=== PATIENT | female | born 1950 | race Caucasian/White ===

== ENCOUNTER 2017-08-29 13:26 | Inpatient (IN) | payer MEDICARE, BC ==
[~2017-08-29] VITALS: Ht 160 cm; Wt 90.9 kg
[~2017-08-29 13:26] MED LIST: METF500T4 PO; PROP20TA7 PO; WARF3TAB6 PO
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
[2017-08-29] MEDS ORDERED: IOHEXOL-350 100 ML VIAL IV ONE (13:55)
[2017-08-29] MEDS ORDERED: IV NS 0.9% 500 ML IV ONE (13:56)
[2017-08-29] MEDS ORDERED: IV NS 0.9% 1,000 ML BAG IV ONE (14:00)
[2017-08-29 14:03] LABS: BASOPHILS % (AUTO) 0.6 % (0.0-2.0); EOSINOPHILS # (AUTO) 0.1 /CMM (0.0-0.7); EOSINOPHILS % (AUTO) 1.3 % (0.0-6.0); HEMATOCRIT 37 % (33-45); HEMOGLOBIN 11.8 g/dL (11.5-14.8); LYMPHOCYTES # (AUTO) 1.5 /CMM (0.8-4.8); LYMPHOCYTES % (AUTO) 33.9 % (20.0-44.0); MEAN CORPUSCULAR HEMOGLOBIN 23 PG (26.0-33.0); MEAN CORPUSCULAR HGB CONC 32 g/dl (31.0-36.0); MEAN CORPUSCULAR VOLUME 71 fL (82-100); MONOCYTES # (AUTO) 0.4 /CMM (0.1-1.30); MONOCYTES % (AUTO) 8.5 % (2.0-12.0); NEUTROPHILS # (AUTO) 2.3 /CMM (1.8-8.9); NEUTROPHILS % (AUTO) 55.7 % (43.0-81.0); PLATELET COUNT (AUTO) 190 /CMM (150-450); RED BLOOD CELL COUNT(AUTO) 5.21 MIL/uL (4.0-5.2); WHITE BLOOD COUNT (AUTO) 4.3 K/uL (4.3-11.0)
[2017-08-29 14:12] LABS: CALCIUM, SERUM 9.1 mg/dL (8.5-10.1); CARBON DIOXIDE 28 mmol/L (21-32); CHLORIDE 106 mmol/L (98-107); CREATININE 0.7 mg/dL (0.6-1.3); GLUCOSE 151 mg/dL (74-106); POTASSIUM 3.6 mmol/L (3.5-5.1); SODIUM SERUM 140 mmol/L (136-145); UREA NITROGEN, BLOOD 11 mg/dL (7-18)
--- NOTE | 2017-08-29 14:12 | NUR ---
DR. KRAUSE AT BS FOR EVAL.
--- NOTE | 2017-08-29 14:14 | NUR ---
CALL FROM TELE STROKE, DR SOLANO SPOKE WITH DR HIGGINS
[2017-08-29 14:17] LABS: INR 1.25 (0.85-1.15)
[2017-08-29 14:18] LABS: ALANINE AMINOTRANSFERASE 24 U/L (12-78); ALBUMIN 3.8 g/dL (3.4-5.0); ALKALINE PHOSPHATASE 75 U/L (46-116); ASPARTATE AMINOTRANSFERASE 19 U/L (15-37); BILIRUBIN,DIRECT 0.1 mg/dL (0.0-0.2); BILIRUBIN,TOTAL 0.5 mg/dL (0.2-1.0); TOTAL PROTEIN, SERUM 7.9 g/dL (6.4-8.2)
[2017-08-29 14:26] LABS: TROPONIN I < 0.017 ng/mL (0.00-0.056)
[2017-08-29 14:44] LABS: CHOLESTEROL 154 mg/dL (<200); HDL CHOLESTEROL 43 mg/dL (40-60); LDL 96 mg/dL (0-99); TRIGLYCERIDES 106 mg/dL (30-150)
[2017-08-29] MEDS ORDERED: ENAL5TAB PO (14:57)
[2017-08-29] MEDS ORDERED: RIVA10TA PO (14:57)
[2017-08-29] MEDS ORDERED: METO-357 PO (14:57)
[2017-08-29] MEDS ORDERED: ASPIRIN 81 MG TAB.CHEW PO ONE (15:00)
[2017-08-29] MEDS ORDERED: ASPIRIN 81 MG TAB.CHEW ONE (15:25)
--- NOTE | 2017-08-29 15:44 | NUR ---
PANEL CALL WAS PLACED AND TOPHER HELMS WAS PAGED
--- NOTE | 2017-08-29 16:29 | NUR ---
REPORT GIVEN TO MAGEN BELLO FOR ER[facility]
[2017-08-29] MEDS ORDERED: ONDANSETRON HCL/PF 4 MG/2 ML VIAL IVP PRN (17:30)
[2017-08-29] MEDS ORDERED: Z GUARD REMEDY 2 OZ OINT TP PRN (17:30)
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
[2017-08-29 17:54] VITALS: BP 161/70
[2017-08-29] MEDS: ACETAMINOPHEN 325 MG TABLET PO PRN (18:11)
--- NOTE | 2017-08-29 18:11 | NUR ---
RN NOTES ADMINISTERED TYLENOL 650 MG PO PRN FOR EARACHE 10/23, PER PATIENT REQUEST, CONTINUED MONITORING.
--- NOTE | 2017-08-29 19:30 | NUR ---
QUALITY ASSURANCE MONITOR BODY NOTE RECEIVED PATIENT AWAKE, ALERT AND ORIENTED IN BED. DAUGHTER AT BEDSIDE. DENIES ANY PAIN OR DISCOMFORT. PATIENT DENIES ANY FACIAL WEAKNESS AT THIS TIME. IV SITE INTACT WITH NO REDNESS NOTED. BED LOCKED AND IN LOWEST POSITION. WILL CONTINUE TO MONITOR.
[2017-08-29 20:00] VITALS: BP 155/73
[2017-08-29 22:00] VITALS: BP 155/73
[2017-08-29] MEDS: METOPROLOL SUCCINATE 50 MG TAB.SR.24H PO SCH (22:17)
[2017-08-29] MEDS: LANOLIN/MIN OIL/PETROLAT,WHT 3.5 GM TUBE LEFTEYE SCH (22:17)
[2017-08-30 00:27] VITALS: BP 132/66
[2017-08-30 04:00] VITALS: BP 140/84
--- NOTE | 2017-08-30 05:01 | NUR ---
HEADWAITRESS NOTE HEART PAUSE OF 1.8 SECONDS SEEN ON MONITOR. PATIENT STABLE, WITH NO COMPLAINT OF CHEST PAIN. NO LOC, NO AMS. PATIENT IS MIRANDA A.FIB 50. DIANNA ARNOLD NOTIFIED IMMEDIATELY. NEW ORDERS FOR BMP AND CARDIO CONSULT RECEIVED. WILL CONTINUE TO MONITOR PATIENT CLOSELY.
--- NOTE | 2017-08-30 06:57 | NUR ---
TEXTED DR. CLAROS FOR MRI APPROVAL.
--- NOTE | 2017-08-30 06:58 | NUR ---
ON HOLD FOR NOW,DR. CLAROS WILL LET US KNOW.
--- NOTE | 2017-08-30 07:03 | NUR ---
INFRASTRUCTURE ARCHITECT NOTE TELE READING 50 WITH A.WEN. PATIENT STABLE. NO ALOC OR AMS. ALL NEEDS MET AND ATTENDED TO. WILL ENDORSE TO DAY SHIFT.
[2017-08-30 07:36] LABS: CALCIUM, SERUM 8.7 mg/dL (8.5-10.1); CREATININE 0.7 mg/dL (0.6-1.3); POTASSIUM 3.7 mmol/L (3.5-5.1)
[2017-08-30 07:40] LABS: BASOPHILS % (AUTO) 0.2 % (0.0-2.0); HEMATOCRIT 35 % (33-45); HEMOGLOBIN 11.1 g/dL (11.5-14.8); LYMPHOCYTES # (AUTO) 1.6 /CMM (0.8-4.8); LYMPHOCYTES % (AUTO) 33.4 % (20.0-44.0); MEAN CORPUSCULAR HEMOGLOBIN 23 PG (26.0-33.0); MEAN CORPUSCULAR HGB CONC 32 g/dl (31.0-36.0); MEAN CORPUSCULAR VOLUME 71 fL (82-100); MONOCYTES # (AUTO) 0.4 /CMM (0.1-1.30); MONOCYTES % (AUTO) 8.1 % (2.0-12.0); NEUTROPHILS # (AUTO) 2.7 /CMM (1.8-8.9); NEUTROPHILS % (AUTO) 57.3 % (43.0-81.0); PLATELET COUNT (AUTO) 182 /CMM (150-450); RDW COEFFICIENT OF VARIATION 21.3 (11.5-15.0); RED BLOOD CELL COUNT(AUTO) 4.88 MIL/uL (4.0-5.2); WHITE BLOOD COUNT (AUTO) 4.7 K/uL (4.3-11.0)
[2017-08-30 07:51] LABS: ALBUMIN 3.5 g/dL (3.4-5.0); BILIRUBIN,TOTAL 0.7 mg/dL (0.2-1.0); CALCIUM, SERUM 8.9 mg/dL (8.5-10.1); CREATININE 0.7 mg/dL (0.6-1.3); MAGNESIUM 1.9 mg/dL (1.8-2.4); PHOSPHORUS 3.4 mg/dL (2.5-4.9); POTASSIUM 3.7 mmol/L (3.5-5.1); TOTAL PROTEIN, SERUM 7.1 g/dL (6.4-8.2)
[2017-08-30 08:00] VITALS: BP 163/65
--- NOTE | 2017-08-30 08:07 | NUR ---
RN OPENING NOTES RECEIVED PATIENT RESTING COMFORTABLY IN BED. AOX4. NO ACUTE DISTRESS NOTED. RESPIRATIONS APPEAR EVEN AND UNLABORED. DENIES ANY PAIN, CP OR SOB. FACIAL WEAKNESS NOTED TO THE LEFT SIDE OF THE FACE. PATIENT LEFT SIDE EXTREMITIES WNL. ON TELE READING AFIB MIRANDA. IV ACCESS PATENT AND INTACT. LFA 22G BED LOCKED IN THE LOWEST POSITION WITH SIDERAILS UP X2. CALL LIGHT WITHIN REACH. WILL CONTINUE TO MONITOR, ASSESS AND EDUCATE PATIENT THROUGHOUT SHIFT.
[2017-08-30 08:15] LABS: THYROID STIMULATING HORMONE 2.56 uIU/mL (0.358-3.74)
[2017-08-30] MEDS: METOPROLOL SUCCINATE 50 MG TAB.SR.24H PO SCH ×2 (09:00→21:43)
[2017-08-30] MEDS: METFORMIN 500 MG TABLET PO SCH (09:10)
[2017-08-30] MEDS: ENALAPRIL MALEATE (5 MG) 5 MG TABLET PO SCH (09:10)
[2017-08-30] MEDS: RIVAROXABAN 10 MG TABLET PO SCH (09:12)
[2017-08-30] MEDS: AMLODIPINE BESYLATE 5 MG TABLET PO SCH (09:12)
--- NOTE | 2017-08-30 09:15 | NUR ---
RN NON ADMIN NOTES PATIENT MIRANDA. HR 47. WILL HOLD METOPROLOL.
[2017-08-30 12:00] VITALS: BP 140/82
[2017-08-30] MEDS: ACETAMINOPHEN 325 MG TABLET PO PRN (13:10)
[2017-08-30 16:00] VITALS: BP 119/67
--- NOTE | 2017-08-30 19:30 | NUR ---
METAL STAMPER NOTE RECEIVED PATIENT AWAKE, ALERT AND ORIENTED IN BED. DAUGHTER AT BEDSIDE. DENIES ANY PAIN OR DISCOMFORT. IV SITE INTACT WITH NO REDNESS NOTED. BED LOCKED AND IN LOWEST POSITION. WILL CONTINUE TO MONITOR.
[2017-08-30 20:00] VITALS: BP 148/77
--- NOTE | 2017-08-30 20:30 | NUR ---
RN CLOSING NOTES PATIENT CONDITION REMAINS UNCHANGED. PATIENT IN STABLE CONDITION. NO ACUTE DISTRESS. RESPIRATIONS EVEN AND UNLABORED. AOX4. DENIES SOB, CP OR ANY PAIN AT ALL. BED LOCKED IN THE LOWEST POSITION WITH SIDE RAILS UP X2. ALL NEEDS MET. ALL MEDS GIVEN APPROPRIATE.
[2017-08-30] MEDS: LANOLIN/MIN OIL/PETROLAT,WHT 3.5 GM TUBE LEFTEYE SCH (21:43)
--- NOTE | 2017-08-30 22:44 | NUR ---
STORY ANALYST NOTES RECEIVED PT IN BED, ASLEEP AT THIS TIME, AROUSES EASILY. NO DISTRESS, NO SOB NOTED. RESPIRATION IS EVEN AND UNLABORED ON TELE MONITOR, A. FIB 56 AT THIS TIME. NO C/O PAIN OR DISCOMFORT AT THIS TIME. IV SITE ON LFA INTACT AND PATENT, FLUSHED WITH NS , NO S/S OF INFILTRATION NOTED. ALL NEEDS ATTENDED AND MET. KEPT COMFORTABLE. SAFETY PRECAUTIONS OBSERVED. CALL LIGHT WITHIN REACH. WILL CONT TO MONITOR.
--- NOTE | 2017-08-30 22:44 | NUR ---
JACKHAMMER SPLITTER OPERATOR NOTE ENDORSED TO EUGENIA HERRON
[2017-08-31] VITALS: BP_SYST 150; BP_SYST 160; BP_DIAS 70; BP_DIAS 74
[2017-08-31] MEDS: ACETAMINOPHEN 325 MG TABLET PO PRN ×2 (02:19→13:22)
[2017-08-31 04:00] VITALS: BP_SYST 150; BP_SYST 152; BP_DIAS 69; BP_DIAS 70
--- NOTE | 2017-08-31 06:51 | NUR ---
THREAT ANALYST NOTES PT IN BED, RESTING COMFORTABLY AT THIS TIME, AROUSES EASILY. NO DISTRESS, NO SOB NOTED. RESPIRATION IS EVEN AND UNLABORED ON TELE MONITOR, A. FIB 63 AT THIS TIME. NO C/O PAIN OR DISCOMFORT AT THIS TIME. IV SITE ON LFA INTACT AND PATENT, FLUSHED WITH NS , NO S/S OF INFILTRATION NOTED. ALL NEEDS ATTENDED AND MET. KEPT COMFORTABLE. SAFETY PRECAUTIONS OBSERVED. CALL LIGHT WITHIN REACH. WILL ENDORSE TO NEXT SHIFT FOR ERMA. .
[2017-08-31 07:10] VITALS: BP 155/76
--- NOTE | 2017-08-31 08:00 | NUR ---
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 PATIENT REFUSED PAIN AT THIS TIME, SCHEDULED MEDICATION ADMINISTERED, V/S STABLE, SAFETY PRECAUTION MAINTAINED ALL THE TIME.
[2017-08-31 08:13] LABS: BASOPHILS % (AUTO) 0.2 % (0.0-2.0); EOSINOPHILS # (AUTO) 0.1 /CMM (0.0-0.7); EOSINOPHILS % (AUTO) 1.1 % (0.0-6.0); HEMATOCRIT 35 % (33-45); HEMOGLOBIN 11.1 g/dL (11.5-14.8); LYMPHOCYTES # (AUTO) 1.8 /CMM (0.8-4.8); MEAN CORPUSCULAR HEMOGLOBIN 23 PG (26.0-33.0); MEAN CORPUSCULAR HGB CONC 32 g/dl (31.0-36.0); MEAN CORPUSCULAR VOLUME 71 fL (82-100); MONOCYTES # (AUTO) 0.4 /CMM (0.1-1.30); MONOCYTES % (AUTO) 8.2 % (2.0-12.0); NEUTROPHILS # (AUTO) 2.8 /CMM (1.8-8.9); NEUTROPHILS % (AUTO) 55.5 % (43.0-81.0); PLATELET COUNT (AUTO) 191 /CMM (150-450); RED BLOOD CELL COUNT(AUTO) 4.86 MIL/uL (4.0-5.2); WHITE BLOOD COUNT (AUTO) 5.1 K/uL (4.3-11.0)
[2017-08-31 08:18] LABS: TROPONIN I < 0.017 ng/mL (0.00-0.056)
[2017-08-31 08:23] LABS: ALANINE AMINOTRANSFERASE 26 U/L (12-78); ALBUMIN 3.7 g/dL (3.4-5.0); ALKALINE PHOSPHATASE 63 U/L (46-116); ASPARTATE AMINOTRANSFERASE 16 U/L (15-37); BILIRUBIN,TOTAL 0.7 mg/dL (0.2-1.0); CALCIUM, SERUM 9.1 mg/dL (8.5-10.1); CARBON DIOXIDE 26 mmol/L (21-32); CHLORIDE 108 mmol/L (98-107); CREATININE 0.7 mg/dL (0.6-1.3); GLUCOSE 184 mg/dL (74-106); MAGNESIUM 1.8 mg/dL (1.8-2.4); PHOSPHORUS 3.4 mg/dL (2.5-4.9); POTASSIUM 3.8 mmol/L (3.5-5.1); SODIUM SERUM 144 mmol/L (136-145); TOTAL PROTEIN, SERUM 7.6 g/dL (6.4-8.2); UREA NITROGEN, BLOOD 17 mg/dL (7-18)
[2017-08-31] MEDS: AMLODIPINE BESYLATE 5 MG TABLET PO SCH (10:52)
[2017-08-31] MEDS: METFORMIN 500 MG TABLET PO SCH (10:53)
[2017-08-31] MEDS: ENALAPRIL MALEATE (5 MG) 5 MG TABLET PO SCH (10:53)
[2017-08-31 10:54] VITALS: BP 155/76
[2017-08-31] MEDS: METOPROLOL SUCCINATE 50 MG TAB.SR.24H PO SCH (10:54)
[2017-08-31] MEDS: RIVAROXABAN 10 MG TABLET PO SCH (10:58)
--- NOTE | 2017-08-31 13:22 | NUR ---
RN NOTES ADMINISTERED TYLENOL 650 MG PO PRN FOR LEFT EARACHE 11/22, CONTINUED MONITORING.
--- NOTE | 2017-08-31 14:50 | NUR ---
RN NOTES MEDICATION WERE ADMINISTERED FOR PAIN EFFECTIVE, PT AMBULATORY, USING BATHROOM, SAFETY PRECAUTION MAINTAINED ALL THE TIME.
[2017-08-31] MEDS ORDERED: PRED20TA PO (15:43)
[2017-08-31] MEDS ORDERED: MINE3.5O OP (15:43)
[2017-08-31] MEDS ORDERED: VALA100026 PO (15:43)
[2017-08-31] MEDS ORDERED: AMLO10TA2 PO (15:44)
--- NOTE | 2017-08-31 17:20 | NUR ---
DISCHARGE NOTES PATIENT D/C AT THIS TIME GOING HOME. PATIENT A/O X4, MED COMPLIANT, V/S STABLE, NO C/O PAIN, MEDICALLY STABLE. MED RECONCILIATION AND DISCHARGE ORDER REVIEWED AND EXPLAINED, ALSO TEACH NEED FOR NOCTURNAL PATCH TO PATIENT AND DAUGHTER. PATIENT VERBALIZED UNDERSTANDING. PATIENT WILL FOLLOW-UP WITH VASCULAR SURGERY FOR ABNORMALITY, AND PRIMARY MD. BELONGING WITH THE PATIENT, PATIENT SIGN PAPERWORK, ESCORTED PATIENT TO THE LOBBY FOR SAFETY. PATIENT WATER RIGHTS SPECIALIST BY DAUGHTER NAME TASIA JESSIKA # [phone].
== END 2017-08-31 17:40 | disposition home or self-care (01) | DRG 74 ==
LOC: ER 13:29 → TELE 15:56 → MED 08-31 08:05
PROVIDERS: ADMIT Nurse Practitioner Acute Care; ATTEND Nurse Practitioner Acute Care
DX: G51.0 Bell's palsy (principal); E87.0 Hyperosmolality and hypernatremia; D68.59 Other primary thrombophilia; I48.91 Unspecified atrial fibrillation; E66.01 Morbid (severe) obesity due to excess calories; E11.9 Type 2 diabetes mellitus without complications; E78.5 Hyperlipidemia, unspecified; G47.33 Obstructive sleep apnea (adult) (pediatric); I10 Essential (primary) hypertension; Z79.01 Long term (current) use of anticoagulants; Z90.710 Acquired absence of both cervix and uterus; Z68.35 Body mass index [BMI] 35.0-35.9, adult; I65.22 Occlusion and stenosis of left carotid artery; Z79.84 Long term (current) use of oral hypoglycemic drugs
CPT/HCPCS: 36415; 70450-TC; 70496-TC; 70498-TC; 70551-TC; 71045-TC; 80048-TC; 80053-TC; 80061-TC; 80076-TC; 80162-TC; 82962-TC; 83735-TC; 84100-TC; 84443-TC; 84484-TC; 85025-TC; 85730-TC; 87081-TC; 92611-TC; 93307-TC; 93880-TC; A4606; J7030; J7040; Q9967; Z7610

== ENCOUNTER 2018-04-19 12:48 | Emergency (ER) | payer MEDICARE, BC ==
[~2018-04-19] VITALS: Ht 154.9 cm; Wt 88.0 kg
[~2018-04-19 12:48] MED LIST changes: +AMLO10TA6 PO; +ENAL5TAB PO; +METF-440 PO; -METF500T4 PO; +METO-357 PO; +MINE3.5O OP; +PRED20TA PO; -PROP20TA7 PO; +RIVA10TA PO; +VALA100026 PO; -WARF3TAB6 PO
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
[2018-04-19 13:39] VITALS: BP 155/80
[2018-04-19] MEDS ORDERED: KETOROLAC TROMETHAMINE INJ 60 MG/2 ML VIAL IM ONE ×2 (13:46→14:00)
--- NOTE | 2018-04-19 14:10 | NUR ---
DISCHARGE INSTRUCTIONS GIVEN VERBAL AND WRITTEN. ADVISED ON FOLLOW UP AND TO RETURN TO ED IF FEELING WORSE NOT BETTER. VERBALIZED UNDERSTANDING ALL QUESTIONS ANSWERED.
--- NOTE | 2018-04-19 14:10 | NUR ---
PT R ARM PLACED IN SLING, HAND AT THE LEVEL OF THE HEART. ARM PINK WARM AND DRY. SENSATION INTACT. MOVES HAND WITHOUT DIFFICULTY. SKIN PINK WARM AND DRY RESPS EVEN AND NON LABORED NO ACUTE DISTRESS. AMBULATED FROM ED STEADY GAIT.
== END 2018-04-19 14:25 | disposition home or self-care (01) ==
LOC: ER 12:54
DX: S46.811A Strain of other muscles, fascia and tendons at shoulder and upper arm level, right arm, initial encounter (principal); I10 Essential (primary) hypertension; E11.9 Type 2 diabetes mellitus without complications; Z90.710 Acquired absence of both cervix and uterus; V49.49XA Driver injured in collision with other motor vehicles in traffic accident, initial encounter; Y93.89 Activity, other specified; Y92.410 Unspecified street and highway as the place of occurrence of the external cause; Y99.8 Other external cause status
CPT/HCPCS: 71045; 73030; 96372; 99284; A4606; J1885; Z7610

== ENCOUNTER 2018-10-16 09:06 | Emergency (ER) | payer MEDICARE, BC ==
[~2018-10-16] VITALS: Ht 160 cm; Wt 92.1 kg
[~2018-10-16 09:06] MED LIST changes: -AMLO10TA6 PO; +AMLO10TA7 PO
--- NOTE | 2018-10-16 09:15 | NUR ---
patient presented to the ER c/o fever x 4 days, took 2 advil this morning. On room air, breathing evenly and unlabored. Denies any pain at this time. Connected to the monitor and pulse ox. kept comfortable. will continue to monitor accordingly.
[2018-10-16 09:27] LABS: APPEARANCE,URINE Cloudy (CLEAR); BILIRUBIN,URINE Negative (NEGATIVE); BLOOD, URINE Moderate Ery/uL (NEGATIVE); KETONES,URINE Negative (NEGATIVE); LEUKOCYTE ESTERASE ,URINE Moderate (NEGATIVE); NITRITE, URINE Positive (NEGATIVE); PROTEIN,URINE 30 mg/dl (NEGATIVE); UGLUCOSE Negative (NEGATIVE)
[2018-10-16 09:28] LABS: COLOR,URINE Dark Yellow (YELLOW)
[2018-10-16 09:30] LABS: BASOPHILS % (AUTO) 0.3 % (0.0-2.0); HEMATOCRIT 33 % (33-45); HEMOGLOBIN 10.6 g/dL (11.5-14.8); LYMPHOCYTES % (AUTO) 12.5 % (20.0-44.0); MEAN CORPUSCULAR HGB CONC 33 g/dl (31.0-36.0); MEAN CORPUSCULAR VOLUME 69 fL (82-100); MONOCYTES # (AUTO) 0.8 /CMM (0.1-1.30); MONOCYTES % (AUTO) 10.1 % (2.0-12.0); NEUTROPHILS # (AUTO) 6.1 /CMM (1.8-8.9); NEUTROPHILS % (AUTO) 77.1 % (43.0-81.0); PLATELET COUNT (AUTO) 189 /CMM (150-450); RED BLOOD CELL COUNT(AUTO) 4.71 MIL/uL (4.0-5.2); WHITE BLOOD COUNT (AUTO) 7.9 K/uL (4.3-11.0)
[2018-10-16] MEDS ORDERED: IV NS 0.9% 1,000 ML BAG IV ONE (09:30)
[2018-10-16] MEDS ORDERED: ACETAMINOPHEN 650 MG/20.3 ML UDC PO ONE (09:30)
[2018-10-16 09:38] LABS: BACTERIA,URINE Many /HPF (None Seen); SQUAMOUS EPITHELIAL CELL,UR Many /HPF (None Seen); WBC,URINE TOO NUMEROUS TO COUN /HPF (0-3)
[2018-10-16 09:40] LABS: CARBON DIOXIDE 27 mmol/L (21-32); CHLORIDE 100 mmol/L (98-107); CREATININE 0.9 mg/dL (0.6-1.3); GLUCOSE 197 mg/dL (74-106); POTASSIUM 3.9 mmol/L (3.5-5.1); SODIUM SERUM 135 mmol/L (136-145); UREA NITROGEN, BLOOD 15 mg/dL (7-18)
[2018-10-16 09:40] LABS: RBC,URINE TOO NUMEROUS TO COUN /HPF (0-2)
[2018-10-16] MEDS ORDERED: ACETAMINOPHEN 650 MG/20.3 ML UDC ONE (09:41)
[2018-10-16 09:46] LABS: ALANINE AMINOTRANSFERASE 19 U/L (12-78); ALBUMIN 3.6 g/dL (3.4-5.0); ALKALINE PHOSPHATASE 81 U/L (46-116); ASPARTATE AMINOTRANSFERASE 15 U/L (15-37); BILIRUBIN,DIRECT 0.2 mg/dL (0.0-0.2); BILIRUBIN,TOTAL 0.6 mg/dL (0.2-1.0); TOTAL PROTEIN, SERUM 7.9 g/dL (6.4-8.2)
[2018-10-16] MEDS ORDERED: CEFTRIAXONE 1GM BAG (ER ONLY) 1 GM/50 ML PIGGYBACK IV ONE (10:00)
[2018-10-16] MEDS ORDERED: CEFTRIAXONE 1GM BAG (ER ONLY) 50 ML IV ONE (10:01)
[2018-10-16] MEDS ORDERED: HALOPERIDOL LACTATE INJ 5 MG/ML VIAL ONE (10:17)
[2018-10-16] MEDS ORDERED: LORAZEPAM INJ 2 MG/ML VIAL ONE (10:18)
[2018-10-16] MEDS ORDERED: diphenhydrAMINE HCL 50 MG/ML VIAL ONE (10:18)
[2018-10-16 11:13] VITALS: BP 125/62
--- NOTE | 2018-10-16 11:15 | NUR ---
Patient discharged to home in stable condition. Written and verbal after care instructions given. Patient verbalizes understanding of instruction.IV removed. Catheter intact and site benign. Pressure and 4x4 applied to site. No bleeding noted.
== END 2018-10-16 11:14 | disposition home or self-care (01) ==
LOC: ER 09:08
DX: N39.0 Urinary tract infection, site not specified (principal); E11.9 Type 2 diabetes mellitus without complications; I10 Essential (primary) hypertension; I48.91 Unspecified atrial fibrillation; Z90.710 Acquired absence of both cervix and uterus; Z79.84 Long term (current) use of oral hypoglycemic drugs; Z79.899 Other long term (current) drug therapy
CPT/HCPCS: 36415; 71045; 80048; 80076; 81001; 83605; 84484; 85025; 85730; 87040 ×2; 87077; 87086; 87186; 96365; 99284; J0696; J7030; 81000-TC; J1200; J1630; J2060